=== PATIENT | male | born 1950 | race Caucasian/White ===

== ENCOUNTER 2019-06-11 08:00 | Outpatient (RCR) | payer MEDICARE, SELFPAY ==
[2019-04-30 09:16] VITALS: BMI 25.7
[2019-04-30 11:05] VITALS: BMI 25.8
== END 2019-06-11 23:59 | disposition home or self-care (01) ==
LOC: NS 08:00
PROVIDERS: Visit Provider Student in an Organized Health Care Education/Training Program
DX: R63.4 Abnormal weight loss (principal); N18.9 Chronic kidney disease, unspecified; C34.2 Malignant neoplasm of middle lobe, bronchus or lung; C79.31 Secondary malignant neoplasm of brain; C77.9 Secondary and unspecified malignant neoplasm of lymph node, unspecified; Z71.3 Dietary counseling and surveillance
CPT/HCPCS: 97802